=== PATIENT | female | born 2000 ===

== ENCOUNTER → 2024-03-23 09:00 | Outpatient (BNV) | payer OTHER, SELFPAY | PROVIDERS: Visit Provider Internal Medicine Cardiovascular Disease | DX: I49.1 Atrial premature depolarization (principal) | CPT/HCPCS: 93244 ==

== ENCOUNTER → 2024-03-23 11:00 | Outpatient (REF) | payer OTHER, SELFPAY ==
--- NOTE | 2024-03-23 | HM_ITS ---
Conclusion: 1. Patient was monitored for total period of 2 days and 23 hours 2. Baseline was normal sinus rhythm with average heart of 88 beats per minute 3. No significant pauses noted and no significant arrhythmias noted 4. Patient marked the counter 2 times, both time reporting increase heart rate, 1 of the events correlating with PACs MTDD
== END ==
LOC: HO.CARD 11:00
PROVIDERS: Visit Provider Nurse Practitioner Family
DX: R00.2 Palpitations (principal)
CPT/HCPCS: 93242